=== PATIENT | female | born 1995 | race Hispanic/Latino ===

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

== ENCOUNTER 2017-05-30 22:06 | Emergency (ER) | payer BC ==
[2017-05-30 22:19] VITALS: BP 137/77; PULSE 128; TEMP 98.1; O2SAT 98
[2017-05-30] MEDS ORDERED: Albuterol-Ipratrop 3 mg / 0.5 (3 ml) UD INH STA (22:25)
--- NOTE | 2017-05-30 22:25 | ED PDOC ---
HPI: CCC, URI, Sore Throat Time Seen by Provider: 05/30/17 22:18 Chief Complaint (Nursing): Shortness Of Breath Chief Complaint (Provider): cough History Per: Patient Additional Complaint(s): 21-year-old female presents with cough and shortness of breath that started yesterday. Patient was seen today at urgent care and was given prescription for Zithromax and Ventolin inhaler but she does not feel better so she came to ER this evening. Patient states the cough has worsened in the past few hours. She denies any fever or chills, no recent travel or known sick contacts. Patient denies history of asthma but does have history of frequent bronchitis. Past Medical History Reviewed: Historical Data, Nursing Documentation, Vital Signs Vital Signs: Last Vital Signs Temp 98.1 F 05/30/17 22:14 Pulse 128 H 05/30/17 22:14 Resp 18 05/30/17 22:31 BP 137/77 05/30/17 22:14 Pulse Ox 98 05/30/17 22:24 - Medical History PMH: No Chronic Diseases - Family History Family History: States: No Known Family Hx - Living Arrangements Living Arrangements: With Family - Social History Current smoker - smoking cessation education provided: No Alcohol: None Drugs: Denies - Home Medications Home Medications: Ambulatory Orders Medication Instructions Recorded Cyclobenzaprine [Cyclobenzaprine 10 mg PO BID #15 tab 09/29/16 HCl] Diclofenac 25 mg PO Q6 #20 ect 09/29/16 Lidocaine 1 patch TP DAILY #5 tdm 09/29/16 Benzonatate 200 mg PO TID PRN #20 capsule 05/30/17 predniSONE [Prednisone] 20 mg PO BID #10 tab 05/30/17 - Allergies Allergies/Adverse Reactions: Allergies Allergy/AdvReac Type Severity Reaction Status Date / Time Penicillins Allergy URTICARIA Verified 09/29/16 20:56 Review of Systems ROS Statement: Except As Marked, All Systems Reviewed And Found Negative Constitutional: Negative for: Fever Respiratory: Positive for: Cough, Shortness of Breath, Wheezing Physical Exam - Reviewed Nursing Documentation Reviewed: Yes Vital Signs Reviewed: Yes - Physical Exam Skin: Negative for: Rash Eye Exam: Positive for: Normal appearance Cardiovascular/Chest: Positive for: Regular Rate, Rhythm Respiratory: Positive for: Rhonchi, Wheezing. Negative for: Accessory Muscle Use Gastrointestinal/Abdominal: Positive for: Soft. Negative for: Tenderness, Distended, Guarding, Rebound Extremity: Positive for: Normal ROM. Negative for: Pedal Edema Neurologic/Psych: Positive for: Alert, Oriented - Laboratory Results Urine POC: Negative - ECG O2 Sat by Pulse Oximetry: 98 Pulse Ox Interpretation: Normal - Other Rad CXR X-Ray: Interpreted by Me, Viewed By Me X-Ray Interpretation: no infiltrate Medical Decision Making Medical Decision Makin21 year old with cough and wheezing Plan: CXR Duoneb x 1 PO prednisone 40 mg Patient feels better after meds were given. Patient was already provided with prescription for Ventolin inhaler and Zithromax from urgent care earlier today. Additional prescriptions given for Tessalon Perles and prednisone. Patient advised take all meds as directed and follow up in 2-3 days with primary doctor. Disposition - Clinical Impression Clinical Impression: Bronchitis - Patient ED Disposition Is Patient to be Admitted: No Counseled Patient/Family Regarding: Studies Performed, Diagnosis, Need For Followup, Rx Given - Disposition Referrals: [facility] [Outside] Disposition: Routine/Home Disposition Time: 23:13 Condition: STABLE Additional Instructions: Take all meds as directed. Follow up in 2-3 days with primary care doctor. Prescriptions: Benzonatate 200 mg PO TID PRN #20 capsule PRN Reason: Cough predniSONE [Prednisone] 20 mg PO BID #10 tab Instructions: Acute Bronchitis (ED) Forms: [employer] ([place])
[2017-05-30] MEDS ORDERED: Albuterol-Ipratrop 3 mg / 0.5 (3 ml) UD ONE (22:28)
[2017-05-30 22:33] VITALS: RESP 18
--- NOTE | 2017-05-31 09:56 | RAD ---
HISTORY: cough COMPARISON: Chest radiograph dated 09/29/2016. TECHNIQUE: Chest PA and lateral FINDINGS: LUNGS: No active pulmonary disease. PLEURA: No significant pleural effusion identified. No pneumothorax apparent. CARDIOVASCULAR: Normal. OSSEOUS STRUCTURES: Stable S-shaped thoracolumbar scoliosis. VISUALIZED UPPER ABDOMEN: Normal. OTHER FINDINGS: Bilateral nipple ornamentation redemonstrated. IMPRESSION: No active disease.
== END 2017-05-30 23:51 | disposition home or self-care (01) ==
LOC: H.ER 22:06
DX: J40 Bronchitis, not specified as acute or chronic (principal); Z88.0 Allergy status to penicillin